=== PATIENT | male | born 1965 | race Caucasian/White ===

== ENCOUNTER → 2020-08-15 13:32 | Outpatient (BNVA) | payer OTHER, SELFPAY | PROVIDERS: PCP Internal Medicine; Visit Provider Nurse Practitioner Family ==

== ENCOUNTER 2020-09-10 15:00 | Outpatient (REF) | payer OTHER, SELFPAY ==
--- NOTE | ~2020-09-10 | MR_ITS ---
EXAMINATION: MR LUMBAR SPINE WITHOUT CONTRAST CLINICAL INFORMATION: Lumbar radiculopathy. Right greater than left leg numbness and weakness. Right greater than left toe numbness. COMPARISON: None TECHNIQUE: MRI of the lumbar spine was obtained using routine sequences without contrast. FINDINGS: VERTEBRAL BODIES AND PARASPINAL STRUCTURES: Normal vertebral body alignment. The lumbar lordosis is maintained. No acute fracture or subluxation. No loss of vertebral body height. Mild loss of intervertebral disc height with disc desiccation at L4-L5. No abnormal marrow signal to suggest acute osseous injury. The visualized paraspinal soft tissues are unremarkable. CONUS MEDULLARIS AND CAUDA EQUINA: Normal, terminating at the level of the L1 superior endplate. SPINAL LEVELS: T12-L1: No significant disc bulge. No central canal or neural foraminal stenosis. L1-L2: No significant disc bulge. No central canal or neural foraminal stenosis. L2-L3: No significant disc bulge. No central canal or neural foraminal stenosis. L3-L4: Shallow left paracentral/subarticular disc protrusion which abuts the exiting left L3 nerve root and traversing left L4 nerve root. Bilateral facet arthropathy and thickening of the ligamentum flavum with minimal central canal as well as mild bilateral neural foraminal stenosis. L4-L5: Shallow disc bulge with posterior annular fissuring, asymmetric to the left which abuts the exiting left L4 nerve root. Bilateral facet arthropathy and thickening of the ligamentum flavum with [id number] central canal stenosis which encroaches upon the traversing bilateral L5 nerve roots and causes mild bilateral neural foraminal stenosis. L5-S1: Minimal posterior central disc protrusion with bilateral facet arthropathy. No significant central canal or neural foraminal stenosis. MR/MR lumbar spine wo con IMPRESSION: 1. Mild degenerative disc disease at L4-L5 with a shallow disc bulge and posterior annular fissuring which is asymmetric to the left and abuts the exiting left L4 nerve root. Bilateral facet arthropathy and thickening of the ligamentum flavum causing [id number] central canal stenosis which encroaches upon the bilateral L5 nerve roots. Mild bilateral neural foraminal stenosis. 2. Shallow left paracentral/subarticular disc protrusion at L3-L4 which abuts the exiting left L3 nerve root and traversing left L4 nerve root. Bilateral facet arthropathy and thickening of the ligamentum flavum causing minimal central canal as well as mild bilateral neural foraminal stenosis. 3. Minimal posterior central disc protrusion at L5-S1 with bilateral facet arthropathy. No central canal or neural foraminal stenosis.
== END 2020-09-10 15:01 | disposition home or self-care (01) ==
LOC: HO.MRI 15:00
PROVIDERS: Visit Provider Nurse Practitioner Family
DX: M54.16 Radiculopathy, lumbar region (principal)
CPT/HCPCS: 72148